=== PATIENT | male | born 1995 | race Caucasian/White ===

== ENCOUNTER 2021-08-22 17:15 | Emergency (ER) | payer OTHER, SELFPAY ==
--- NOTE | ~2021-08-22 | XR_ITS ---
EXAMINATION: XR KNEE, RIGHT CLINICAL INFORMATION: Knee pain COMPARISON: None TECHNIQUE: AP and lateral views of the right knee. XR/XR knee RT 2V FINDINGS AND IMPRESSION: There appears to be periarticular osteopenia of the knee. Query if there is history of disuse of the extremity. The fracture-fragmentation of the lower pole of the patella is of uncertain chronicity. There are no comparison knee radiographs. Query if there is a known specific date of patellar injury. The patellar fragments are in near-anatomic position. Soft tissues are swollen around the patella. Trace knee joint effusion is present. The patellofemoral and tibiofemoral joint spaces are maintained.
[2021-08-22 17:18] VITALS: BP 149/85; PULSE 94; RESP 18; TEMP 36.8; O2SAT 100; BMI 17.9
[2021-08-22] MEDS: Ketorolac Tromethamine 30 MG/ML VIAL IM (18:38)
--- NOTE | 2021-08-22 19:06 | ED_ITS ---
HPI - Extremity Injury (Lower) General Chief Complaint: Extremity Injury, Lower Stated Complaint: knee pain/swellin elbow pain Time Seen by Provider: 08/22/21 18:31 Source: patient Mode of arrival: ambulatory History of Present Illness HPI Narrative: 26-year-old male with past medical history of right patellar fracture s/p ORIF in May, presenting to the ED complaining of acute on chronic right knee pain and swelling x2 days. Reports recently started going to physical therapy, although all has been non compliant last 2 sessions due to housing difficulties. Admits has been on his feet increasing amount as is homeless and has no where to stay at the moment, and fearful has been overdoing it. Denies fever, chills, numbness, tingling, direct injury/trauma or fall MD complaint: knee injury Onset (ago): day(s) Related Data Previous Rx's Medication Instructions Recorded acetaminophen 500 mg tablet 500 mg PO Q6H PRN #20 tab 08/22/21 (Tylenol Extra Strength) naproxen 500 mg tablet 500 mg PO BID PRN 10 Days #20 tab 08/22/21 Allergies Allergy/AdvReac Type Severity Reaction Status Date / Time cat dander [cats] Allergy Hives Verified 08/22/21 17:22 Review of Systems Review of Systems: Constitutional: No Fever, No Chills ENT/Mouth: No Ear Pain, No Nasal Congestion, No sore throat, No Swallowing Difficulty Cardiovascular: No Chest Pain, No SOB Respiratory: No Cough Gastrointestinal: No Nausea, No Vomiting, No Diarrhea, No Constipation, No Abdominal pain Genitourinary:, No Dysuria, No Flank Pain Musculoskeletal: + joint pain, No Myalgias, +Joint Swelling Skin: No Skin Lesions, No rash Neuro: No Weakness, No Numbness, No Paresthesias Yes all other systems are reviewed and are negative Neurologic: Denies Sensory deficit (Neuro) [facility] Past Medical History Attestation statement: The following information was validated with the patient. Social History Social History Advance Directives: No Advance Directives Information Provided: No Physical Exam Vital Signs: Vital Signs: Last Vital Signs Temp 98.2 F 08/22/21 17:18 Pulse 94 08/22/21 17:18 Resp 18 08/22/21 17:18 BP 149/85 H 08/22/21 17:18 Pulse Ox 100 08/22/21 17:18 BMI result Body Mass Index 17.9 Const: General: cooperative, healthy appearing and no acute distress Orientation/consciousness: patient oriented x3 Limitations: no limitations HENMT: Head: Yes normal to inspection and Yes atraumatic Ears: hearing grossly normal bilaterally General nose exam: Normal external nose present Face and sinus: Yes normal facial exam Eyes: General: appearance normal, both eyes and all related structures EOM: EOMs intact bilaterally Neck: Neck: Yes normal visual inspection and Yes no meningeal signs Resp: Effort & Inspection: normal respiratory effort and no respiratory distress Cardio: Rate: regular rate Peripheral pulses: dorsalis pedis present : General: Yes no CVA tenderness Back/Spine/Pelvis: Back: no CVA tenderness Skin: Rashes: no rashes Neuro: General: patient oriented x3, tone normal and no meningeal signs Sensory Exam: No Sensory deficit (Neuro) Extrem: Other: Right knee with old surgical scar noted, +mild swelling, no erythema/no warmth, +ttp with decreased ROM. +RLE emaciation General: Yes capillary refill normal Course Course Course Narrative: XR knee RT 2V FINDINGS AND IMPRESSION: There appears to be periarticular osteopenia of the knee. Query if there is history of disuse of the extremity. The fracture-fragmentation of the lower pole of the patella is of uncertain chronicity. There are no comparison knee radiographs. Query if there is a known specific date of patellar injury. The patellar fragments are in near-anatomic position. Soft tissues are swollen around the patella. Trace knee joint effusion is present. The patellofemoral and tibiofemoral joint spaces are maintained. >> patient has orthopedic locking knee brace. Discussed results with patient including needed compliance with physical therapy, as well as balance bwt rest and exercises. Patient reports he can stay at his old foster mother's place tonight. I offered CARE team to give him a list of shelters, also discussed with patient STR placement with Case Management (although being weekend evening not in facility). Patient discussed options with friend at bedside and plans to return Tuesday to meet with Case Management for potential STR placement. Discharge Plan Discharge Clinical Impression: Effusion of knee joint right, Closed fracture of patella with delayed healing Patient Disposition: Home, Self-Care Instructions: Patellar Fracture Repair (DC), Swollen Knee Joint (ED) Additional Instructions: Your x-ray shows decreased bone mass to right knee. Shows that your knee is healing. Also shows small amount of fluid around her knee joint. Continue to wear your knee brace. Bear weight as tolerated. Rest. Elevate. Ice. Naproxen as an anti-inflammatory/pain medication, take with food. In addition take Tylenol. You need to follow-up with your student specialist You also need to attend physical therapy as scheduled Prescriptions: New acetaminophen [Tylenol Extra Strength] 500 mg tablet 500 mg PO Q6H PRN (Reason: pain or fever) Qty: 20 0RF naproxen 500 mg tablet 500 mg PO BID PRN (Reason: pain) 10 Days Qty: 20 0RF Referrals: Kevin Arango PA-C [Physician [facility] [employer]] - 2 days Physician,None [Primary Care Provider] - 2 days
--- NOTE | 2021-08-22 20:12 | PC.NURSE ---
PT IS A HOMELESS MALE WHO HAS INCREASED SWELLING TO RIGHT KNEE DO TO HAVING TO WALK MORE AND BEING S/P SURGERY. [facility] ARANDA OFFED PT SORT TERM REHAB BUT HE WOULD HAVE TO WAIT TILL TUESDAY FOR CASE MANAGEMENT. PT HAD A PLACE TO STAY TONIGHT AND SAID HE WOULD BE BACK ON TUESDAY TO SEEK PT/OT AND REHAB OPTIONS. .
== END 2021-08-22 20:15 | disposition home or self-care (01) ==
PROVIDERS: Emergency Provider Internal Medicine
DX: M25.461 Effusion, right knee (principal); S82.001 Unspecified fracture of right patella; X58.XXXD Exposure to other specified factors, subsequent encounter; Z91.19 Patient's noncompliance with other medical treatment and regimen
CPT/HCPCS: 73560; 96372; 99284; J1885